=== PATIENT | female | born 1960 | race Caucasian/White ===

== ENCOUNTER 2017-11-10 09:12 | Day surgery (SDC) | payer BC ==
[2017-11-09 14:10] VITALS: BMI 25.4
[2017-11-10] MEDS ORDERED: Propofol 10 mg/ml Inj (20 ML) ONE (09:51)
[2017-11-10 09:53] VITALS: O2SAT 100
--- NOTE | 2017-11-10 10:16 | PCM.SURG1 ---
Surgeon's Initial Post Op Note - Surgeon's Notes Surgeon: dr espitia Log Hooker: none Type of Anesthesia: General LMA Anesthesia Administered By: dr newman Pre-Operative Diagnosis: 57 yr with h?o htn pmb/endometrial thickerning Operative Findings: see the op reort Post-Operative Diagnosis: same Operation Performed: d&c, hysterscopy/myasure Specimen/Specimens Removed: ecc. emc. polyp Estimated Blood Loss: EBL {In ML}: 20 Blood Products Given: N/A Drains Used: No Drains Post-Op Condition: Good Date of Surgery/Procedure: 11/10/17 Time of Surgery/Procedure: 11:00
[2017-11-10] MEDS ORDERED: cefOXitin IV 1 gm in Dextrose 1 GM/50 ML BAG IVPB ONE (10:23)
[2017-11-10] MEDS ORDERED: HYDROmorphone 0.5 mg/0.5 ml ISec IVP PRN (11:05)
[2017-11-10 12:21] VITALS: BP 132/70; PULSE 74; RESP 18; TEMP 97.1
--- NOTE | 2017-11-20 19:40 | OP ---
PROCEDURE DATE: 11/10/2017 PREOPERATIVE DIAGNOSIS: This is 57-year-old 2, para 2 with hypertension and postmenopausal endometrial thickening. POSTOPERATIVE DIAGNOSIS: This is 57-year-old 2, para 2 with hypertension and postmenopausal endometrial thickening. SURGEON: Dean Joshi MD ANESTHESIA: TYPE OF ANESTHESIA: General anesthesia. PROCEDURE PERFORMED: Dilatation and curettage, hysteroscopy, and MyoSure. COMPLICATIONS: None. ESTIMATED BLOOD LOSS: 20 mL. DESCRIPTION OF PROCEDURE: The patient was brought to the operating room, placed on the table, where spinal anesthesia was given. Once the anesthesia was given, the patient was prepped and draped in the normal sterile fashion. Uterus examination revealed it to be 7- to 8-week size. No pelvic or adnexal masses. Anterior lip of cervix was grasped with a tenaculum. Gentle dilatation of the cervix was done. There was noted involved to be a thickened endometrium of the tissue on the posterior wall of the uterus. After that, the hysteroscope was introduced. Then the MyoSure was introduced. The MyoSure was used to remove the polyp. After that, sharp curettage of the endometrium was done and then the ECC was done. After this, the ECC and EMC were sent to Pathology. The tenaculum was taken out of the anterior lip of the cervix. The patient tolerated the procedure well. All lap, sponge, and instrument counts were correct x2. . Dean Joshi MD
== END 2017-11-10 14:30 | disposition home or self-care (01) ==
LOC: C.SDS 09:12
PROVIDERS: ATTEND Obstetrics & Gynecology
DX: N95.0 Postmenopausal bleeding (principal); N85.00 Endometrial hyperplasia, unspecified; I10 Essential (primary) hypertension; N84.0 Polyp of corpus uteri
CPT/HCPCS: 58563; 88305; J0694; J1170; J2704; J3010